=== PATIENT | female | born 1995 | race African-American/Black ===

== ENCOUNTER 2020-01-02 00:12 | Emergency (ER) | payer MEDICAID, OTHER | END 2020-01-02 00:54 | disposition left against medical advice (07) | LOC: ER 00:12 | DX: M79.89 Other specified soft tissue disorders (principal); Z53.21 Procedure and treatment not carried out due to patient leaving prior to being seen by health care provider ==

== ENCOUNTER 2020-02-09 21:25 | Emergency (ER) | payer OTHER ==
[~2020-02-09] VITALS: Ht 165.1 cm; Wt 106.6 kg
[2020-02-09 23:53] VITALS: BP 141/91
== END 2020-02-09 23:58 | disposition home or self-care (01) ==
LOC: ER 21:25
DX: M62.838 Other muscle spasm (principal); V89.2XXA Person injured in unspecified motor-vehicle accident, traffic, initial encounter; Y93.89 Activity, other specified; Y92.89 Other specified places as the place of occurrence of the external cause; Y99.8 Other external cause status
CPT/HCPCS: 70450; 72125; 72131; 81025

== ENCOUNTER 2023-12-14 00:23 | Emergency (ER) | payer MEDICAID, OTHER ==
[~2023-12-14] VITALS: Ht 167.6 cm; Wt 111.3 kg
[2023-12-14 00:27] VITALS: BP 176/91
[2023-12-14 00:37] VITALS: PULSE 124
[2023-12-14 00:41] VITALS: RESP 20; O2SAT 94
== END 2023-12-14 05:17 | disposition left against medical advice (07) ==
LOC: ER 00:23
DX: R06.02 Shortness of breath (principal); R11.2 Nausea with vomiting, unspecified; R19.7 Diarrhea, unspecified; M79.605 Pain in left leg; Z53.21 Procedure and treatment not carried out due to patient leaving prior to being seen by health care provider
CPT/HCPCS: 93005